=== PATIENT | female | born 1955 | race American Indian/Alaskan Native ===

== ENCOUNTER 2020-07-31 03:40 | Inpatient (IN) | payer BC ==
[2020-07-31] MEDS ORDERED: AZITHROMYCIN/NS 500 MG/250 ML 500 MG/250 ML BAG IV ONE (04:38)
[2020-07-31] MEDS ORDERED: SODIUM CHLORIDE 0.9% 500 ML 500 ML IV ONE (04:44)
[2020-07-31] MEDS ORDERED: cefTRIAXone/NS 1 GM/50 ML 1 GM/50 ML BAG IV ONE (05:00)
[2020-07-31 05:26] LABS: Basophils % (Auto) 0.1 % (0.0-1.8); Hematocrit 35.1 % (30.3-42.9); Hemoglobin 11.6 gm/dl (10.1-14.3); Lymphocytes # (Auto) 1.5 K/mm3 (1.2-5.4); Mean Corpuscular HGB Conc 33 % (30-34); Mean Corpuscular Volume 90 fl (79-97); Monocytes # (Auto) 0.6 K/mm3 (0.0-0.8); Monocytes % (Auto) 4.2 % (0.0-7.3); Platelet Count 307 K/mm3 (140-440); Red Blood Count 3.89 M/mm3 (3.65-5.03); Red Cell Distribution Width 14.4 % (13.2-15.2)
[2020-07-31 05:35] LABS: INR 1.15 (0.87-1.13)
[2020-07-31 05:36] LABS: Partial Thromboplastin Time 30.9 Sec. (24.2-36.6)
[2020-07-31 05:40] LABS: Alanine Aminotransferase 54 units/L (7-56); Albumin 3.5 g/dL (3.9-5); BUN/Creatinine Ratio 14; Blood Urea Nitrogen 14 mg/dL (7-17); Calcium 8.2 mg/dL (8.4-10.2); Hemolysis Index 1
[2020-07-31] MEDS ORDERED: DEXTROSE 50% IN WATER (25GM) 50 ML SYRINGE IV PRN ×2 (08:04→08:12)
[2020-07-31] MEDS ORDERED: oxyCODONE /ACETAMINOPHEN 5-325MG TAB PO PRN (08:04)
[2020-07-31] MEDS ORDERED: ALBUTEROL 2.5 MG/3 ML NEBU IH PRN (08:04)
[2020-07-31] MEDS ORDERED: NALOXONE 0.4 MG/1 ML INJ IV PRN (08:04)
[2020-07-31] MEDS ORDERED: ACETAMINOPHEN 325 MG TAB PO PRN (08:04)
[2020-07-31] MEDS ORDERED: MORPHINE 2 MG/1 ML INJ IV PRN (08:04)
[2020-07-31] MEDS: POTASSIUM CHLORIDE 10 MEQ 10 MEQ/100 ML BAG IV SCH ×2 (09:34→11:19)
[2020-07-31 10:10] LABS: Chol/HDL Ratio 3.78 %
[2020-07-31] MEDS: SENNOSIDES 8.6 MG TAB PO SCH ×2 (11:06→22:05)
[2020-07-31] MEDS: amLODIPine 5 MG TAB PO SCH (11:06)
[2020-07-31] MEDS: FAMOTIDINE 20 MG/2 ML INJ IV SCH ×2 (11:19→22:06)
[2020-07-31] MEDS: FUROSEMIDE 40 MG/4 ML INJ IV SCH (11:19)
[2020-07-31] MEDS: ENOXAPARIN 100 MG/1 ML INJ SUB-Q SCH ×2 (11:19→22:08)
[2020-07-31] MEDS: INSULIN LISPRO 100 UNIT/ML SUB-Q SCH ×2 (11:53→18:29)
[2020-07-31] MEDS ORDERED: POTASSIUM CHLORIDE 10 MEQ 10 MEQ/100 ML BAG IV SCH (12:00)
[2020-07-31] MEDS ORDERED: methylPREDNISolone Sod Succinate 125 MG/2 ML INJ IV SCH (14:00)
[2020-07-31] MEDS ORDERED: REMDESIVIR 200 MG in SODIUM CHLORIDE 0.9% 250ML 250 ML IV ONE (15:30)
[2020-07-31] MEDS ORDERED: TOCILIZUMAB 600 MG in SODIUM CHLORIDE 0.9% 100 ML IV ONE (16:00)
[2020-07-31] MEDS: IPRATROPIUM/ALBUTEROL SULFATE 3 ML AMPUL.NEB IH SCH ×2 (16:33→20:57)
[2020-07-31] MEDS: dexAMETHasone 4 MG/ML VIAL IV SCH (16:59)
[2020-07-31] MEDS: SODIUM CHLORIDE 0.9% 50 ML IVPB IV SCH (17:00)
[2020-07-31] MEDS: ARFORMOTEROL 15 MCG/2 ML NEBU IH SCH (20:57)
[2020-07-31] MEDS: BUDESONIDE 0.5 MG/2 ML NEBU IH SCH (20:57)
[2020-08-01] MEDS: INSULIN LISPRO 100 UNIT/ML SUB-Q SCH ×4 (00:24→18:03)
[2020-08-01] MEDS: IPRATROPIUM/ALBUTEROL SULFATE 3 ML AMPUL.NEB IH SCH ×4 (02:36→22:07)
[2020-08-01 04:55] LABS: Bacteria,Urine 1+ /HPF (Negative); Bilirubin,Urine NEG (Negative); Blood,Urine SM (Negative); Color,Urine Yellow (Yellow); Mucus,Urine 2+ /HPF
[2020-08-01] MEDS: LEVOTHYROXINE 75 MCG TAB PO SCH (05:42)
[2020-08-01] MEDS: FUROSEMIDE 40 MG/4 ML INJ IV SCH (07:54)
[2020-08-01] MEDS: BUDESONIDE 0.5 MG/2 ML NEBU IH SCH ×2 (08:37→22:06)
[2020-08-01] MEDS: ARFORMOTEROL 15 MCG/2 ML NEBU IH SCH ×2 (08:37→22:06)
[2020-08-01 08:55] LABS: Hematocrit 33.4 % (30.3-42.9); Hemoglobin 11.5 gm/dl (10.1-14.3); Mean Corpuscular HGB Conc 34 % (30-34); Mean Corpuscular Volume 89 fl (79-97); Platelet Count 267 K/mm3 (140-440); Red Blood Count 3.74 M/mm3 (3.65-5.03); Red Cell Distribution Width 14.2 % (13.2-15.2)
[2020-08-01 09:18] LABS: Alanine Aminotransferase 60 units/L (7-56); Albumin 3.7 g/dL (3.9-5); BUN/Creatinine Ratio 26; Blood Urea Nitrogen 26 mg/dL (7-17); Calcium 8.4 mg/dL (8.4-10.2); Hemolysis Index 0
[2020-08-01] MEDS: dexAMETHasone 4 MG/ML VIAL IV SCH (09:39)
[2020-08-01] MEDS: FAMOTIDINE 20 MG/2 ML INJ IV SCH ×2 (09:39→21:09)
[2020-08-01] MEDS: ENOXAPARIN 100 MG/1 ML INJ SUB-Q SCH ×2 (09:39→21:09)
[2020-08-01] MEDS: SENNOSIDES 8.6 MG TAB PO SCH ×2 (09:40→21:09)
[2020-08-01] MEDS: amLODIPine 5 MG TAB PO SCH (09:40)
[2020-08-01 09:41] LABS: Band Neutrophils # (Manual) 0.4 K/mm3; Total Cells Counted 100
[2020-08-01 09:42] LABS: Platelet Estimate Consistent w Auto; RBC Morphology Normal
[2020-08-01] MEDS: cefTRIAXone/NS 2 GM/100 ML 2 GM/100 ML BAG IV SCH (09:43)
[2020-08-01] MEDS: AZITHROMYCIN/NS 500 MG/250 ML 500 MG/250 ML BAG IV SCH (09:43)
[2020-08-01] MEDS: SODIUM CHLORIDE 0.9% 50 ML IVPB IV SCH (21:09)
[2020-08-01] MEDS: REMDESIVIR 100 MG in SODIUM CHLORIDE 0.9% 250ML 250 ML IV SCH (21:09)
[2020-08-01] MEDS: ZINC SULFATE 220 MG CAP PO SCH (21:09)
[2020-08-02] MEDS: IPRATROPIUM/ALBUTEROL SULFATE 3 ML AMPUL.NEB IH SCH ×3 (01:49→07:15)
[2020-08-02 05:56] LABS: C-Reactive Protein 4.5 mg/dL (0.00-1.30)
[2020-08-02 05:57] LABS: Alanine Aminotransferase 49 units/L (7-56); Albumin 3.4 g/dL (3.9-5); BUN/Creatinine Ratio 35; Blood Urea Nitrogen 28 mg/dL (7-17); Calcium 8.3 mg/dL (8.4-10.2); Hemolysis Index 0
[2020-08-02] MEDS: INSULIN LISPRO 100 UNIT/ML SUB-Q SCH ×4 (06:20→17:00)
[2020-08-02] MEDS: LEVOTHYROXINE 75 MCG TAB PO SCH (06:22)
[2020-08-02] MEDS: ARFORMOTEROL 15 MCG/2 ML NEBU IH SCH (07:15)
[2020-08-02] MEDS: BUDESONIDE 0.5 MG/2 ML NEBU IH SCH (07:15)
[2020-08-02] MEDS ORDERED: POTASSIUM CHLORIDE ER 20 MEQ TAB PO ONE (09:00)
[2020-08-02] MEDS: AZITHROMYCIN/NS 500 MG/250 ML 500 MG/250 ML BAG IV SCH (09:48)
[2020-08-02] MEDS: dexAMETHasone 4 MG/ML VIAL IV SCH (09:48)
[2020-08-02] MEDS: cefTRIAXone/NS 2 GM/100 ML 2 GM/100 ML BAG IV SCH (09:49)
[2020-08-02] MEDS: ENOXAPARIN 100 MG/1 ML INJ SUB-Q SCH ×2 (09:49→22:11)
[2020-08-02] MEDS: ZINC SULFATE 220 MG CAP PO SCH ×2 (09:50→22:11)
[2020-08-02] MEDS: amLODIPine 10 MG TAB PO SCH (09:50)
[2020-08-02] MEDS: CHOLECALCIFEROL (VIT D3) 5,000 UNIT TAB PO SCH (09:50)
[2020-08-02] MEDS: ASCORBIC ACID 500 MG TAB PO SCH (09:55)
[2020-08-02] MEDS: FAMOTIDINE 20 MG TAB PO SCH ×2 (09:55→22:11)
[2020-08-02] MEDS: SENNOSIDES 8.6 MG TAB PO SCH ×2 (09:55→22:11)
[2020-08-02] MEDS ORDERED: ONDANSETRON 4 MG/2 ML INJ IV PRN (10:27)
[2020-08-02] MEDS: REMDESIVIR 100 MG in SODIUM CHLORIDE 0.9% 250ML 250 ML IV SCH (22:10)
[2020-08-02] MEDS: SODIUM CHLORIDE 0.9% 50 ML IVPB IV SCH (22:11)
[2020-08-03] MEDS: INSULIN LISPRO 100 UNIT/ML SUB-Q SCH ×5 (00:22→22:50)
[2020-08-03 06:09] LABS: Hematocrit 34.3 % (30.3-42.9); Hemoglobin 11.8 gm/dl (10.1-14.3); Mean Corpuscular HGB Conc 34 % (30-34); Mean Corpuscular Volume 88 fl (79-97); Platelet Count 313 K/mm3 (140-440); Red Blood Count 3.91 M/mm3 (3.65-5.03); Red Cell Distribution Width 13.8 % (13.2-15.2)
[2020-08-03] MEDS: LEVOTHYROXINE 75 MCG TAB PO SCH (06:17)
[2020-08-03 06:36] LABS: Alanine Aminotransferase 42 units/L (7-56); Albumin 3.3 g/dL (3.9-5); BUN/Creatinine Ratio 29; Blood Urea Nitrogen 23 mg/dL (7-17); Calcium 8.3 mg/dL (8.4-10.2); Hemolysis Index 2
[2020-08-03] MEDS ORDERED: POTASSIUM CHLORIDE ER 20 MEQ TAB PO NR (08:30)
[2020-08-03] MEDS: cefTRIAXone/NS 2 GM/100 ML 2 GM/100 ML BAG IV SCH (12:05)
[2020-08-03] MEDS: dexAMETHasone 4 MG/ML VIAL IV SCH (12:06)
[2020-08-03] MEDS: ENOXAPARIN 100 MG/1 ML INJ SUB-Q SCH ×2 (12:07→21:28)
[2020-08-03] MEDS: FAMOTIDINE 20 MG TAB PO SCH ×2 (12:07→21:28)
[2020-08-03] MEDS: POTASSIUM CHLORIDE ER 20 MEQ TAB PO SCH ×2 (12:07→14:49)
[2020-08-03] MEDS: ASCORBIC ACID 500 MG TAB PO SCH (12:10)
[2020-08-03] MEDS: SENNOSIDES 8.6 MG TAB PO SCH ×2 (12:10→21:28)
[2020-08-03] MEDS: ZINC SULFATE 220 MG CAP PO SCH ×2 (12:10→22:12)
[2020-08-03] MEDS: CHOLECALCIFEROL (VIT D3) 5,000 UNIT TAB PO SCH (12:11)
[2020-08-03] MEDS: amLODIPine 10 MG TAB PO SCH (12:19)
[2020-08-03] MEDS: AZITHROMYCIN/NS 500 MG/250 ML 500 MG/250 ML BAG IV SCH (13:14)
[2020-08-03] MEDS: REMDESIVIR 100 MG in SODIUM CHLORIDE 0.9% 250ML 250 ML IV SCH (21:27)
[2020-08-03] MEDS: SODIUM CHLORIDE 0.9% 50 ML IVPB IV SCH (22:00)
[2020-08-04] MEDS: LEVOTHYROXINE 75 MCG TAB PO SCH (05:02)
[2020-08-04] MEDS: INSULIN LISPRO 100 UNIT/ML SUB-Q SCH ×3 (06:50→18:14)
[2020-08-04 07:58] LABS: C-Reactive Protein 1.3 mg/dL (0.00-1.30)
[2020-08-04] MEDS ORDERED: POTASSIUM CHLORIDE ER 20 MEQ TAB PO ONE (10:24)
[2020-08-04] MEDS: CHOLECALCIFEROL (VIT D3) 5,000 UNIT TAB PO SCH (11:01)
[2020-08-04] MEDS: SENNOSIDES 8.6 MG TAB PO SCH ×2 (11:02→22:37)
[2020-08-04] MEDS: amLODIPine 10 MG TAB PO SCH (11:02)
[2020-08-04] MEDS: ZINC SULFATE 220 MG CAP PO SCH ×2 (11:02→21:14)
[2020-08-04] MEDS: ASCORBIC ACID 500 MG TAB PO SCH (11:03)
[2020-08-04] MEDS: dexAMETHasone 4 MG/ML VIAL IV SCH (11:03)
[2020-08-04] MEDS: FAMOTIDINE 20 MG TAB PO SCH ×2 (11:03→21:14)
[2020-08-04] MEDS: cefTRIAXone/NS 2 GM/100 ML 2 GM/100 ML BAG IV SCH (11:05)
[2020-08-04] MEDS: ENOXAPARIN 100 MG/1 ML INJ SUB-Q SCH ×2 (11:06→21:36)
[2020-08-04] MEDS ORDERED: FUROSEMIDE 40 MG/4 ML INJ IV ONE (11:16)
[2020-08-04] MEDS: AZITHROMYCIN/NS 500 MG/250 ML 500 MG/250 ML BAG IV SCH (11:58)
[2020-08-04] MEDS: REMDESIVIR 100 MG in SODIUM CHLORIDE 0.9% 250ML 250 ML IV SCH (21:36)
[2020-08-04] MEDS: SODIUM CHLORIDE 0.9% 50 ML IVPB IV SCH (22:10)
[2020-08-05] MEDS: INSULIN LISPRO 100 UNIT/ML SUB-Q SCH ×4 (00:20→23:53)
[2020-08-05] MEDS: LEVOTHYROXINE 75 MCG TAB PO SCH (05:06)
[2020-08-05 07:06] LABS: Hematocrit 36.4 % (30.3-42.9); Hemoglobin 12.3 gm/dl (10.1-14.3); Mean Corpuscular HGB Conc 34 % (30-34); Mean Corpuscular Volume 89 fl (79-97); Platelet Count 271 K/mm3 (140-440); Red Blood Count 4.08 M/mm3 (3.65-5.03)
[2020-08-05 07:12] LABS: BUN/Creatinine Ratio 26; Blood Urea Nitrogen 21 mg/dL (7-17); Calcium 8.8 mg/dL (8.4-10.2); Hemolysis Index 3
[2020-08-05] MEDS: cefTRIAXone/NS 2 GM/100 ML 2 GM/100 ML BAG IV SCH (10:09)
[2020-08-05] MEDS: ENOXAPARIN 100 MG/1 ML INJ SUB-Q SCH ×2 (10:09→21:17)
[2020-08-05] MEDS: FAMOTIDINE 20 MG TAB PO SCH ×2 (10:10→21:18)
[2020-08-05] MEDS: ASCORBIC ACID 500 MG TAB PO SCH (10:10)
[2020-08-05] MEDS: CHOLECALCIFEROL (VIT D3) 5,000 UNIT TAB PO SCH (10:10)
[2020-08-05] MEDS: amLODIPine 10 MG TAB PO SCH (10:10)
[2020-08-05] MEDS: SENNOSIDES 8.6 MG TAB PO SCH ×2 (10:10→21:18)
[2020-08-05] MEDS: ZINC SULFATE 220 MG CAP PO SCH ×2 (10:10→21:18)
[2020-08-05] MEDS: dexAMETHasone 4 MG/ML VIAL IV SCH (10:11)
[2020-08-05] MEDS: AZITHROMYCIN/NS 500 MG/250 ML 500 MG/250 ML BAG IV SCH (10:56)
[2020-08-05] MEDS ORDERED: FUROSEMIDE 40 MG/4 ML INJ IV NR (11:00)
[2020-08-06] MEDS: LEVOTHYROXINE 75 MCG TAB PO SCH (05:26)
[2020-08-06] MEDS: INSULIN LISPRO 100 UNIT/ML SUB-Q SCH ×3 (05:30→19:10)
[2020-08-06] MEDS: FAMOTIDINE 20 MG TAB PO SCH ×2 (09:25→22:01)
[2020-08-06] MEDS: ASCORBIC ACID 500 MG TAB PO SCH (09:25)
[2020-08-06] MEDS: SENNOSIDES 8.6 MG TAB PO SCH ×2 (09:25→22:00)
[2020-08-06] MEDS: CHOLECALCIFEROL (VIT D3) 5,000 UNIT TAB PO SCH (09:25)
[2020-08-06] MEDS: ZINC SULFATE 220 MG CAP PO SCH ×2 (09:25→22:01)
[2020-08-06] MEDS: dexAMETHasone 4 MG/ML VIAL IV SCH (09:26)
[2020-08-06] MEDS: ENOXAPARIN 100 MG/1 ML INJ SUB-Q SCH ×2 (09:26→22:01)
[2020-08-06] MEDS: amLODIPine 10 MG TAB PO SCH (09:26)
[2020-08-07] MEDS: INSULIN LISPRO 100 UNIT/ML SUB-Q SCH ×4 (00:14→17:13)
[2020-08-07] MEDS: LEVOTHYROXINE 75 MCG TAB PO SCH (05:44)
[2020-08-07] MEDS: ZINC SULFATE 220 MG CAP PO SCH ×2 (09:48→21:49)
[2020-08-07] MEDS: SENNOSIDES 8.6 MG TAB PO SCH ×2 (09:48→21:49)
[2020-08-07] MEDS: FAMOTIDINE 20 MG TAB PO SCH ×2 (09:49→21:49)
[2020-08-07] MEDS: dexAMETHasone 4 MG/ML VIAL IV SCH (09:49)
[2020-08-07] MEDS: ASCORBIC ACID 500 MG TAB PO SCH (09:49)
[2020-08-07] MEDS: CHOLECALCIFEROL (VIT D3) 5,000 UNIT TAB PO SCH (09:49)
[2020-08-07] MEDS: ENOXAPARIN 100 MG/1 ML INJ SUB-Q SCH (09:49)
[2020-08-07] MEDS: amLODIPine 10 MG TAB PO SCH (09:50)
[2020-08-07 16:14] LABS: Hematocrit 37.5 % (30.3-42.9); Hemoglobin 12.4 gm/dl (10.1-14.3); Mean Corpuscular HGB Conc 33 % (30-34); Mean Corpuscular Volume 91 fl (79-97); Platelet Count 291 K/mm3 (140-440); Red Blood Count 4.15 M/mm3 (3.65-5.03); Red Cell Distribution Width 14.3 % (13.2-15.2)
[2020-08-07 16:29] LABS: INR 1.02 (0.87-1.13); Partial Thromboplastin Time 30.8 Sec. (24.2-36.6)
[2020-08-07] MEDS: APIXABAN 5 MG TAB PO SCH (21:49)
[2020-08-08] MEDS ORDERED: LEVOTHYROXINE 75 MCG TAB PO SCH (06:00)
[2020-08-08] MEDS: LEVOTHYROXINE 75 MCG TAB PO SCH (06:06)
[2020-08-08] MEDS: INSULIN LISPRO 100 UNIT/ML SUB-Q SCH ×4 (07:27→11:40)
[2020-08-08] MEDS: dexAMETHasone 4 MG/ML VIAL IV SCH (09:03)
[2020-08-08] MEDS: amLODIPine 10 MG TAB PO SCH (09:03)
[2020-08-08] MEDS: FAMOTIDINE 20 MG TAB PO SCH (09:04)
[2020-08-08] MEDS: APIXABAN 5 MG TAB PO SCH (09:04)
[2020-08-08] MEDS: ZINC SULFATE 220 MG CAP PO SCH (09:04)
[2020-08-08] MEDS: SENNOSIDES 8.6 MG TAB PO SCH (09:04)
[2020-08-08] MEDS: ASCORBIC ACID 500 MG TAB PO SCH (09:04)
[2020-08-08] MEDS: CHOLECALCIFEROL (VIT D3) 5,000 UNIT TAB PO SCH (09:04)
[2020-08-08] MEDS ORDERED: LEVOTHYROXINE 25 MCG TAB PO SCH (10:00)
[2020-08-08 13:56] VITALS: BP 123/68
[2020-08-14 13:50] LABS: Hemoglobin A2 Prime SEE SCANNED RESULT; Hemoglobin Barts SEE SCANNED RESULT; Hemoglobin E SEE SCANNED RESULT; Hemoglobin G SEE SCANNED RESULT; Hemoglobin Lepore SEE SCANNED RESULT; Hemoglobin O-Arab SEE SCANNED RESULT; Sickle Solubility Test SEE SCANNED RESULT
[2020-08-14 13:51] LABS: IEF Confirm SEE SCANNED RESULT; Interpretation SEE SCANNED RESULT
[2020-08-14] MEDS ORDERED: APIXABAN 5 MG TAB PO SCH (22:00)
== END 2020-08-08 18:03 | disposition home or self-care (01) | DRG 871 ==
LOC: ED 03:40 → IMCU 07:31 → CC1 08:23 → 3A 08-02 16:06
PROVIDERS: ADMIT Internal Medicine; ATTEND Internal Medicine
PROC: XW033E5 Introduction of Remdesivir Anti-infective into Peripheral Vein, Percutaneous Approach, New Technology Group 5 (ICD-10-PCS; principal; 2020-07-31)
PROC: 4A033R1 Measurement of Arterial Saturation, Peripheral, Percutaneous Approach (ICD-10-PCS; 2020-07-31)
PROC: 5A09457 Assistance with Respiratory Ventilation, 24-96 Consecutive Hours, Continuous Positive Airway Pressure (ICD-10-PCS; 2020-07-31)
PROC: XW033H5 Introduction of Tocilizumab into Peripheral Vein, Percutaneous Approach, New Technology Group 5 (ICD-10-PCS; 2020-07-31)
PROC: 5A0955A Assistance with Respiratory Ventilation, Greater than 96 Consecutive Hours, High Flow/Velocity Cannula (ICD-10-PCS; 2020-08-01)
DX: A41.89 Other specified sepsis (principal); U07.1 COVID-19; J12.82 Pneumonia due to coronavirus disease 2019; J96.01 Acute respiratory failure with hypoxia; I26.99 Other pulmonary embolism without acute cor pulmonale; M62.82 Rhabdomyolysis; E87.2 Acidosis; E83.42 Hypomagnesemia; I10 Essential (primary) hypertension; E11.9 Type 2 diabetes mellitus without complications; E66.9 Obesity, unspecified; J45.909 Unspecified asthma, uncomplicated; Z68.34 Body mass index [BMI] 34.0-34.9, adult; Z79.899 Other long term (current) drug therapy; Z79.84 Long term (current) use of oral hypoglycemic drugs; Z82.49 Family history of ischemic heart disease and other diseases of the circulatory system
CPT/HCPCS: 36415; 71045; 71275; 80048; 80053; 80061; 81001; 82140; 82550; 82565; 82728; 82805; 82962; 83036; 83615; 83735; 84132; 84145; 84443; 84484; 85007; 85025; 85027; 85379; 85610; 85730; 86140; 87040; 93005; 93306; 93970; 94640; 94660; 96374; 96375; G0378; J0456; J0696; J1100; J1650; J1815; J1940; J2930; J3262; J3480; J7040; J7050; Q9967; U0003